=== PATIENT | male | born 1940 | race Caucasian/White ===

== ENCOUNTER → 2018-01-01 | Outpatient (CLI) | payer MEDICARE ==
[~2018-01-01] MED LIST: ARTHRITIS MED; ASPI325; HYDACE5 PO
== END | disposition home or self-care (01) ==
LOC: LAB SHORT 08:23 → PLD 08:23
DX: L30.8 Other specified dermatitis (principal)
CPT/HCPCS: 88305

== ENCOUNTER → 2019-06-05 | Outpatient (CLI) | payer MEDICARE | END | disposition home or self-care (01) | LOC: PLD 10:26 → LAB SHORT 10:26 | DX: D48.5 Neoplasm of uncertain behavior of skin (principal) | CPT/HCPCS: 88305 ==

== ENCOUNTER 2019-09-15 11:45 | Day surgery (SDC) | payer MEDICARE ==
[~2019-09-15] VITALS: Ht 188 cm; Wt 95.6 kg
[2019-09-15] MEDS ORDERED: LISI20 (12:20)
[2019-09-15] MEDS ORDERED: THERA-D2000 UNIT (12:21)
[2019-09-15] MEDS ORDERED: CENTRUM SILVER1 EAC2 (12:21)
[2019-09-15] MEDS ORDERED: Oyster Shell C500 MG (12:21)
[2019-09-15] MEDS ORDERED: ETOD200 (12:22)
[2019-09-15] MEDS ORDERED: TURMERIC 500 M1 EACH (12:22)
== END 2019-09-15 13:54 | disposition home or self-care (01) ==
LOC: ORSCSDS 11:45
PROVIDERS: Internal Medicine Gastroenterology
PROC: 0DBH8ZX Excision of Cecum, Via Natural or Artificial Opening Endoscopic, Diagnostic (ICD-10-PCS; principal; 2019-09-15 13:00)
PROC: 0DBM8ZX Excision of Descending Colon, Via Natural or Artificial Opening Endoscopic, Diagnostic (ICD-10-PCS; principal; 2019-09-15 13:00)
PROC: 0DBN8ZX Excision of Sigmoid Colon, Via Natural or Artificial Opening Endoscopic, Diagnostic (ICD-10-PCS; principal; 2019-09-15 13:00)
DX: Z12.11 Encounter for screening for malignant neoplasm of colon (principal); D12.0 Benign neoplasm of cecum; D12.4 Benign neoplasm of descending colon; K63.5 Polyp of colon; K57.30 Diverticulosis of large intestine without perforation or abscess without bleeding; Z86.010 Personal history of colon polyps; I10 Essential (primary) hypertension; Z79.82 Long term (current) use of aspirin; Z79.899 Other long term (current) drug therapy
CPT/HCPCS: 88305; J2704; J7120

== ENCOUNTER → 2020-04-06 | Outpatient (CLI) | payer MEDICARE ==
[~2020-04-06] MED LIST changes: +CENTRUM SILVER1 EAC2; +ETOD200; +LISI20; +Oyster Shell C500 MG; +THERA-D2000 UNIT; +TURMERIC 500 M1 EACH
== END | disposition home or self-care (01) ==
LOC: PLD 11:50 → LAB SHORT 11:50
DX: D48.5 Neoplasm of uncertain behavior of skin (principal)
CPT/HCPCS: 88305

== ENCOUNTER → 2021-03-29 | Outpatient (CLI) | payer MEDICARE | END | disposition home or self-care (01) | LOC: LAB SHORT 11:33 | DX: L82.1 Other seborrheic keratosis (principal) | CPT/HCPCS: 88305 ==

== ENCOUNTER 2024-12-23 09:31 | Day surgery (SDC) | payer OTHER ==
[~2024-12-23] VITALS: Ht 188 cm; Wt 96.7 kg
[~2024-12-23 09:31] MED LIST changes: +Lactated Ringer's 1,000 ML IV ONE; +propofoL 50 ML IV ONE
[2024-12-23] MEDS ORDERED: GLUCHON (09:59)
[2024-12-23] MEDS ORDERED: ASCO500 (10:00)
[2024-12-23] MEDS ORDERED: VITAMIN D32000 UNIT (10:00)
[2024-12-23] MEDS ORDERED: Lactated Ringer's 1,000 ML IV ONE (10:45)
[2024-12-23 13:26] VITALS: BP 110/86
== END 2024-12-23 12:08 | disposition home or self-care (01) ==
LOC: ORSCSDS 09:31
PROVIDERS: Internal Medicine Gastroenterology
PROC: 0DJD8ZZ Inspection of Lower Intestinal Tract, Via Natural or Artificial Opening Endoscopic (ICD-10-PCS; principal; 2024-12-23 11:00)
DX: Z12.11 Encounter for screening for malignant neoplasm of colon (principal); Z86.0101 Personal history of adenomatous and serrated colon polyps; K57.30 Diverticulosis of large intestine without perforation or abscess without bleeding; Z79.899 Other long term (current) drug therapy
CPT/HCPCS: J2704; J7120